=== PATIENT | male | born 1965 | race Caucasian/White ===

== ENCOUNTER 2023-02-22 08:34 | Outpatient (OUT) | payer MEDICARE, MEDICAID, SELFPAY ==
--- NOTE | 2023-02-22 08:41 | US_ITS ---
The [address] [address] Patient Name: BLANCA VICKERS MRN: [facility]:[id number] date: 1965 Sex: M Assigned Patient Location: US Current Patient Location: US Accession/Order Number: [id number] Exam Date: 02/22/2023 08:42 Report Date: 02/22/2023 09:44 At the request of: NON-STAFF PHYSICIAN Procedure: US scrotum US scrotum, 02/22/2023 8:42 AM EDT, [place]001 INDICATION: Testicular Lump N50.89 COMPARISON: None TECHNIQUE: Multiple transverse and sagittal grayscale, color, and spectral Doppler sonographic images of the scrotum were obtained. FINDINGS: Right scrotum: Testis measurements: 4.5 x 2.5 x 3.6 cm. Epididymis: 8 mm Testis appearance: Normal echogenicity. No intratesticular masses. Color and spectral Doppler tracings: Normal. Other: There is a 1.3 x 1.0 x 1.3 cm anechoic focus along the superior aspect of the testicle which may represent a spermatocele. Left scrotum: Testis measurements: 5.0 x 2.4 x 3.0 cm. Epididymis: There are numerous anechoic foci, measuring up to 9 mm in diameter. Testis appearance: Normal echogenicity. No intratesticular masses. Color and spectral Doppler tracings: Normal. Other: No hydrocele or varicocele. US/US scrotum IMPRESSION: No evidence of mass or torsion. Apparent bilateral spermatoceles. Electronically authenticated by: HOMER JJ Date: 02/22/2023 09:44
[2023-02-22 10:56] LABS: Prostate Specific Antigen Scrn 2.14 ng/mL (<=4.00)
== END 2023-02-22 08:35 | disposition home or self-care (01) ==
LOC: US 08:34
PROVIDERS: PCP Family Medicine
DX: N40.1 Benign prostatic hyperplasia with lower urinary tract symptoms (principal); N50.89 Other specified disorders of the male genital organs; Z12.5 Encounter for screening for malignant neoplasm of prostate
CPT/HCPCS: 36415; 76870; G0103

== ENCOUNTER 2023-03-01 15:45 | Outpatient (OUT) | payer MEDICARE, MEDICAID, SELFPAY ==
[2023-03-01 16:20] LABS: Basophils Percent Auto 0.4 % (0.2-2.0); Eosinophils Absolute Auto 0.2 10^3/uL (0.0-0.7); Eosinophils Percent Auto 2.5 % (0.9-7.0); Hematocrit 47.2 % (42.0-54.0); Immature Granulocytes Abs Auto 0.04 10^3/uL (0.00-0.03); Immature Granulocytes Pct Auto 0.4 % (0.0-0.5); Lymphocytes Absolute Auto 2.8 10^3/uL (1.2-3.8); Lymphocytes Percent Auto 30.2 % (20.5-60.0); Mean Corpuscular HGB Conc 33.9 g/dL (29.9-35.2); Mean Corpuscular Hemoglobin 32.7 pg (25.9-34.0); Mean Corpuscular Volume 96.3 fL (80.0-94.0); Mean Platelet Volume 9.5 fL (9.5-13.5); Monocytes Absolute Auto 0.8 10^3/uL (0.3-0.8); Monocytes Percent Auto 8.4 % (1.7-12.0); Neutrophils Absolute Auto 5.3 10^3/uL (1.4-6.5); Neutrophils Percent Auto 58.1 % (43.0-75.0); Platelet Count 285 10^3/uL (150-450); Red Cell Distribution Width 12.1 % (11.0-15.0); White Blood Count 9.1 10^3/uL (4.0-11.0)
[2023-03-01 16:44] LABS: Estimated Average Glucose 105 mg/dL; Glycohemoglobin A1C 5.3 % (4.5-6.2)
[2023-03-01 16:58] LABS: Prostate Specific Antigen Scrn 2.44 ng/mL (<=4.00)
[2023-03-01 17:02] LABS: Alanine Aminotransferase 27 U/L (16-63); Albumin Globulin Ratio 1.1; Albumin Level 3.7 g/dL (3.4-5.0); Alkaline Phosphatase 106 U/L (46-116); Anion Gap 11.1; Aspartate Amino Transferase 25 U/L (15-37); BUN Creatinine Ratio 14.1; Bilirubin Total 0.5 mg/dL (0.2-1.0); Calcium 8.2 mg/dL (8.5-10.1); Carbon Dioxide 24.9 mmol/L (21.0-32.0); Chloride 104 mmol/L (98-107); Chol HDL Ratio 5.2; Cholesterol 176 mg/dL (<=200); Estimated GFR (African America >60 (>=60); Estimated GFR (Non-African Ame >60 (>=60); Free T3 2.83 pg/mL (2.18-3.98); Globulin 3.4 g/dL; Glucose 84 mg/dL (74-106); HDL Cholesterol 34 mg/dL (40-60); Sodium 136 mmol/L (136-145); Thyroid Stimulating Hormone 1.886 uIU/mL (0.358-3.740); Total Protein 7.1 g/dL (6.4-8.2); Triglycerides 181 mg/dL (<=150); VLDL CHOLESTEROL 36.2 mg/dL
== END 2023-03-01 15:46 | disposition home or self-care (01) ==
LOC: LAB 15:47
PROVIDERS: PCP Family Medicine; Visit Provider Family Medicine
DX: Z00.00 Encounter for general adult medical examination without abnormal findings (principal); E78.5 Hyperlipidemia, unspecified; R73.09 Other abnormal glucose; Z12.5 Encounter for screening for malignant neoplasm of prostate; R13.10 Dysphagia, unspecified
CPT/HCPCS: 36415; 80053; 80061; 83036; 83525; 84436; 84443; 84481; 85025; 86677; G0103

== ENCOUNTER 2023-03-21 09:41 | Outpatient (OUT) | payer MEDICARE, MEDICAID, SELFPAY ==
--- NOTE | 2023-03-21 09:48 | FL_ITS ---
The [address] [address] Patient Name: BLANCA VICKERS MRN: [id number] date: 1965 Sex: M Assigned Patient Location: NM Current Patient Location: NM Accession/Order Number: [id number] Exam Date: 03/21/2023 09:52 Report Date: 03/21/2023 10:36 At the request of: MARINA SCOTT Procedure: FL modified barium swallow EXAMINATION: NM modified barium swallow HISTORY: Dysphagia R13.10 COMPARISON: No relevant comparison available. TECHNIQUE: A swallowing evaluation was performed with fluoroscopy in the usual manner. Standard level fluoroscopic mode of operation utilized. FINDINGS: ORAL PHASE: Normal deglutition. PHARYNGEAL PHASE: Normal swallowing. ASPIRATION: None. STRUCTURE: Normal. No visible obstruction, stricture, or dilatation. OTHER: Negative. FL/NM modified barium swallow IMPRESSION: 1. Normal examination. Electronically authenticated by: ADA LOPEZ Date: 03/21/2023 10:36
== END 2023-03-21 09:42 | disposition home or self-care (01) ==
LOC: FL 09:42
PROVIDERS: PCP Family Medicine; Visit Provider Family Medicine
DX: R13.10 Dysphagia, unspecified (principal)
CPT/HCPCS: 74230; 92611

== ENCOUNTER 2023-04-02 13:25 | Outpatient (OUT) | payer MEDICARE, MEDICAID, SELFPAY | END 2023-04-02 13:26 | disposition home or self-care (01) | LOC: PST 13:26 | PROVIDERS: PCP Family Medicine; Visit Provider Surgery | DX: Z01.818 Encounter for other preprocedural examination (principal); R13.14 Dysphagia, pharyngoesophageal phase; Z12.11 Encounter for screening for malignant neoplasm of colon ==

== ENCOUNTER 2023-04-10 08:00 | Day surgery (SDC) | payer MEDICARE, MEDICAID, SELFPAY ==
--- NOTE | 2023-04-10 | OP_ITS ---
OPERATION DATE: ??04/10/2023 PREOPERATIVE DIAGNOSIS:? Dysphagia as well as need for colorectal screening. POSTOPERATIVE DIAGNOSIS:? Normal EGD and ascending colon polyp, 3 mm. PROCEDURE:? EGD and colonoscopy to cecum with cold snare polypectomy x1 for ascending colon polyp. SURGEON:? Pacheco Foy M.D. ANESTHESIA:? Monitored anesthesia care. ESTIMATED BLOOD LOSS:? Less than 1 mL. INDICATIONS AND CONSENT:? Patient is a 57-year-old male presents for dysphagia as well as colorectal screening.? Indications, risks, benefits, alternatives of proceeding with EGD and colonoscopy were explained extensively to the patient, including the risks of bleeding, aspiration, esophageal/gastric/duodenal or colonic perforation or anesthetic complications.? All of his questions were answered.? Informed consent was obtained. PROCEDURE:? Patient brought to the operating room, placed in the left lateral decubitus position.? Monitored anesthesia care was provided.? Bite block was placed in the patient?s mouth.? Scope was inserted into the oropharynx.? Under direct visualization, it was advanced into the esophagus, past the cricopharyngeus, down to the stomach.? The stomach was insufflated with air.? The pylorus was traversed down to the descending portion of the duodenum.? There was no evidence of duodenitis or ulceration.? There was no scarring within the pyloric channel.?? Scope was pulled back into the stomach and retroflexed.? There was no significant hiatal hernia.? The GE junction was noted at approximately 39 cm.? There was no distal esophagitis or Thompson?s changes. The remainder of the esophagus was unremarkable.? The scope was then withdrawn.? Patient was then positioned for colonoscopy.? Rectal exam was performed, which showed no masses or blood.? The scope was then inserted into the anal canal.? Under direct visualization, it was advanced.? It was advanced to the cecum where cecal markings were clearly identified.? Upon withdrawal of the scope, mucosal surfaces were carefully examined.? Within the ascending colon, there was noted to be a 3 mm sessile polyp that was removed with cold snare with good hemostasis.? There were no other mass lesions or polyps.? No inflammatory changes or ulcerations.? No significant diverticulosis.? The scope was retroflexed in the anal canal.? There was no significant hemorrhoidal disease.? The scope was then withdrawn.? The patient tolerated procedure well, was sent to recovery room in good condition. Follow up colonoscopy should be in five years, but may change depending on the pathology results. CC:? Anuel Hurd M.D. SHAMEKA
[2023-04-10 08:17] VITALS: BP 147/90; PULSE 81; RESP 16; TEMP 36.2; O2SAT 94; BMI 28.3
[2023-04-10] MEDS: LACTATED RINGER'S SOLUTION 1,000 ML 50 ML IV ×2 (08:21→09:31)
[2023-04-10 10:54] VITALS: BP 101/72; PULSE 72; RESP 16; O2SAT 97
[2023-04-10 11:09] VITALS: BP 121/72; PULSE 65; RESP 16; O2SAT 97
[2023-04-10 11:24] VITALS: BP 129/91; PULSE 66; RESP 16; O2SAT 97
== END 2023-04-10 11:24 | disposition home or self-care (01) ==
PROVIDERS: PCP Family Medicine; Visit Provider Surgery
PROC: (CPT 43235; principal; 2023-04-10 09:20)
DX: Z12.11 Encounter for screening for malignant neoplasm of colon (principal); N40.1 Benign prostatic hyperplasia with lower urinary tract symptoms; H91.91 Unspecified hearing loss, right ear; K63.5 Polyp of colon; R13.14 Dysphagia, pharyngoesophageal phase; F17.210 Nicotine dependence, cigarettes, uncomplicated; Z90.49 Acquired absence of other specified parts of digestive tract; E66.9 Obesity, unspecified; I10 Essential (primary) hypertension; Z68.29 Body mass index [BMI] 29.0-29.9, adult
CPT/HCPCS: 43235; 45385; J2704

== ENCOUNTER 2025-04-30 09:59 | Outpatient (RCR) | payer MEDICARE, MEDICAID, SELFPAY | END 2025-05-14 12:52 | disposition home or self-care (01) | LOC: PT 09:59 | PROVIDERS: PCP Family Medicine; Visit Provider Physician Assistant | DX: M17.11 Unilateral primary osteoarthritis, right knee (principal); S86.911D Strain of unspecified muscle(s) and tendon(s) at lower leg level, right leg, subsequent encounter; M54.30 Sciatica, unspecified side | CPT/HCPCS: 97110; 97112; 97162 ==

== ENCOUNTER 2025-05-29 09:33 | Emergency (ER) | payer MEDICARE, SELFPAY ==
[2025-05-29 09:39] VITALS: BP 156/10; PULSE 116; TEMP 36.7; O2SAT 98; BMI 26.2
--- NOTE | 2025-05-29 09:49 | ED.GENADUL1 ---
HPI HPI - General Adult General Chief complaint: Upper Respiratory Infection Stated complaint: ISSUE W/ NOSE Time Seen by Provider: 05/29/25 09:38 Source: patient Mode of arrival: walk-in History of Present Illness HPI narrative: CC - NASAL CONGESTION Patient states that he has a long history of nasal swelling and was told that he has polyps in his nose by and ENT in [place]. He said over the last few weeks it has gotten worse and over the last couple days he is having difficulty sleeping because he is so anxious about the worsening symptoms. He has tried Flonase without improvement. He has also tried a variety of zbep-lho-qxjmujx remedies including Mucinex, nasal spray, [place] pot. No fever or chills. No cough or cold symptoms. No ear pain or sore throat. He has not called the ENT to discuss his symptoms. Related Data Home Medications ?Medication ?Instructions ?Recorded ?Confirmed tamsulosin 0.4 mg capsule (Flomax) 0.4 mg PO DAILY 04/02/23 05/29/25 diclofenac sodium 75 mg mg PO 05/29/25 tablet,delayed release Previous Rx's ?Medication ?Instructions ?Recorded hydroxyzine HCl 25 mg tablet 25 mg PO BID PRN anxiety #14 tabs 05/29/25 methylprednisolone 4 mg tablets in 4 mg PO DAILY #21 ea 05/29/25 a dose pack (Medrol (Bin)) Allergies Allergy/AdvReac Type Severity Reaction Status Date / Time codeine Allergy Intermediate Hives Verified 05/29/25 09:38 [facility] Medical History (Updated 05/29/25 @ 09:52 by Krystian Otero) Ankle fracture ?S82.899A - Other fracture of unspecified lower leg, initial encounter for closed fracture (ICD-10) Ankle fracture, right ?S82.891A - Other fracture of right lower leg, initial encounter for closed fracture (ICD-10) Back disorder ?M53.9 - Dorsopathy, unspecified (ICD-10) Sciatic nerve disease ?G57.00 - Lesion of sciatic nerve, unspecified lower limb (ICD-10) Testicle lump ?N50.89 - Other specified disorders of the male genital organs (ICD-10) Smoker ?F17.200 - Nicotine dependence, unspecified, uncomplicated (ICD-10) Scrotal mass ?N50.89 - Other specified disorders of the male genital organs (ICD-10) Prostate cancer screening ?Z12.5 - Encounter for screening for malignant neoplasm of prostate (ICD-10) Obesity ?E66.9 - Obesity, unspecified (ICD-10) Hypertension ?I10 - Essential (primary) hypertension (ICD-10) Colon polyp ?K63.5 - Polyp of colon (ICD-10) Dysphagia ?R13.10 - Dysphagia, unspecified (ICD-10) Diverticulitis ?K57.92 - Diverticulitis of intestine, part unspecified, without perforation or abscess without bleeding (ICD-10) BPH (benign prostatic hyperplasia) ?N40.0 - Benign prostatic hyperplasia without lower urinary tract symptoms (ICD-10) Deafness ?H91.90 - Unspecified hearing loss, unspecified ear (ICD-10) Surgical History (Updated 04/02/23 @ 12:53 by Iza Arce RN) Hx of tonsillectomy ?Z90.89 - Acquired absence of other organs (ICD-10) H/O partial resection of colon ?Z90.49 - Acquired absence of other specified parts of digestive tract (ICD-10) H/O colonoscopy ?Z98.890 - Other specified postprocedural states (ICD-10) History of appendectomy ?Z90.49 - Acquired absence of other specified parts of digestive tract (ICD-10) H/O cystoscopy ?Z98.890 - Other specified postprocedural states (ICD-10) Family History (Updated 04/02/23 @ 12:54 by Iza Arce RN) Other Cancer of kidney Social History (Updated 04/10/23 @ 08:16 by Tano Arnett) Within the past year, how often did you have a drink containing alcohol: 2-4 times a month Within the past year, how often did you have six or more drinks on one occasion: never Smoking status: Current every day smoker Second hand tobacco smoke exposure: No Non-prescribed substance use: cannabis (any form) Previous occupational history: Unemployed Known occupational exposures/hazards: No Highest level of school completed/degree received: 6th grade Little interest or pleasure in doing things: not at all Feeling down, depressed, or hopeless: several days Exam Narrative Exam Narrative: Nurses notes and vital signs reviewed and patient is not hypoxic. afebrile General: Well-appearing and in no apparent distress. Skin: Warm, dry, no pallor noted. No rash. Head: Normocephalic, atraumatic. Neck: Supple, non-tender. No cervical lymphadenopathy. Eye: Pupils are equal, round and EOMI. No scleral icterus. Ears, Nose, Mouth, and Throat: TM are clear, no posterior oropharynx erythema, uvula is mid-line. Moderate nasal mucosal hypertrophy. Oral mucosa is moist Cardiovascular: Regular Rate and Rhythm without murmur, gallop or rub. Respiratory: No accessory muscle use or respiratory distress. Lungs are clear to auscultation, no wheezing, rales or rhonchi Neurological: A&O x4. No cranial nerve dysfunction observed. No truncal ataxia. Moves all extremities. Sensation intact. Psychiatric: Cooperative and interactive. Normal mood and affect. Constitutional Vital Signs, click to edit/add: Last Vital Signs Temp 98.1 F 05/29/25 09:39 Pulse 116 H 05/29/25 09:39 Resp 20 05/29/25 09:39 BP 156/10 H 05/29/25 09:39 Pulse Ox 98 05/29/25 09:39 O2 Del Method Room Air 05/29/25 09:39 Course Vital Signs Vital signs: Vital Signs Temperature 98.1 F 05/29/25 09:39 Pulse Rate 116 H 05/29/25 09:39 Respiratory Rate 20 05/29/25 09:39 Blood Pressure 156/10 H 05/29/25 09:39 Pulse Oximetry 98 05/29/25 09:39 Oxygen Delivery Method Room Air 05/29/25 09:39 Temperature 98.1 F 05/29/25 09:39 Pulse Rate 116 H 05/29/25 09:39 Respiratory Rate 20 05/29/25 09:39 Blood Pressure 156/10 H 05/29/25 09:39 Pulse Oximetry 98 05/29/25 09:39 Oxygen Delivery Method Room Air 05/29/25 09:39 Medical Decision Making MDM Narrative Medical decision making narrative: Patient has moderate amount of nasal swelling but I am able to see if airways back into the nasal passage on both sides. He was very anxious and therefore I ordered him to receive some hydroxyzine. He was also given prednisone in the ED before being discharged home. I gave him reassurance. He will need to call his ear nose and throat physician to schedule follow-up. He will be placed on a short course of steroid to see if that is beneficial. Discharge Plan Discharge Chief Complaint: Upper Respiratory Infection Clinical Impression: Sinusitis Patient Disposition: Home, Self-Care Time of Disposition Decision: 09:52 Prescriptions / Home Meds: New hydroxyzine HCl 25 mg tablet 25 mg PO BID PRN (Reason: anxiety) Qty: 14 0RF methylprednisolone [Medrol (Bin)] 4 mg tablets,dose pack 4 mg PO DAILY Qty: 21 0RF No Action diclofenac sodium 75 mg tablet,delayed release (DR/EC) PO tamsulosin [Flomax] 0.4 mg capsule 0.4 mg PO DAILY Print Language: Gibraltarian Instructions: Rhinosinusitis (ED) Referrals: Anuel Hurd MD [Primary Care Provider, Family Practice] - 1 week Debbie Hanson MD [Physician, Ear, Nose, Throat] - As soon as possible
[2025-05-29] MEDS: HYDROXYZINE PAMOATE 25 MG CAPSULE PO (10:09)
[2025-05-29] MEDS: PREDNISONE 20 MG TABLET 40 MG PO (10:09)
--- OUTSIDE RECORDS SUMMARY | 2025-05-29 10:12 | XMS_ITS | Clinical Summary ---
Author Organization [facility] Healthcare Address [address] [place] [address] Care Team Providers Care Nuclear Plant Instrument Technician Name Role Phone Unavailable Primary Care Provider Unavailabl e Social History Tobacco UseTypesPacks/DayYears UsedDateSmoking Tobacco: Never AssessedSex and Gender InformationValueDate RecordedSex Assigned at BirthNot on fileLegal Sex Male09/12/2022 7:01 PM EDTGender IdentityNot on fileSexual OrientationNot on file Last Filed Vital Signs Vital SignReadingTime TakenCommentsBlood Gqeyawge199/8207/09/2022 12:00 PM EST Pulse--Temperature--Respiratory Rate--Oxygen Saturation--Inhaled Oxygen Concentration--Pwlfqz169 kg (231 lb)07/09/2022 12:00 PM ITNRvzlld715.9 cm (6') 07/09/2022 12:00 PM ESTBody Mass Index31.33007/09/2022 12:00 PM EST Plan of Treatment Not on file Insurance
--- OUTSIDE RECORDS SUMMARY | 2025-05-29 10:12 | XMS_ITS | Clinical Summary ---
Author Organization [facility] Address [address], [address] [place] [address] Care Team Providers Care Salon Leader Name Role Phone Anuel Hurd MD Primary Care Provider [phone] Allergies Active AllergyReactionsCriticalityNoted KpoxNbzaoxspQwpdbpw01/09/2019 itch Medications MedicationSigDispense QuantityRefillsLast FilledStart DateEnd DateStatus gabapentin (NEURONTIN) 600 MG tablet Take 600 mg by mouth 3 times daily.Active Meloxicam 10 MG CAPS Take by mouthActive Family History Medical HistoryRelationNameCommentsArthritisFatherDiabetesFatherHigh Blood PressureFatherStrokeFatherRelationNameStatusCommentsFather Social History Tobacco UseTypesPacks/DayYears UsedDateSmoking Tobacco: Some DaysSmokeless Tobacco: NeverSex and Gender InformationValueDate RecordedSex Assigned at Not on fileLegal KmmQjko9108/10/2012 7:29 PM ESTGender IdentityNot on fileSexual OrientationNot on file Last Filed Vital Signs Vital SignReadingTime TakenCommentsBlood Pressure--Pulse--Otmuytvjxef10.4 ??C (97.6 ??F)04/03/2019 10:30 AM EDTRespiratory Rate--Oxygen Saturation--Inhaled Oxygen Concentration--Azqoma576.5 kg (237 lb)04/03/2019 10:30 AM TZCFfatpj347.5 cm (6' 3 )04/03/2019 10:30 AM EDTBody Mass Index29.6204/03/2019 10:30 AM EDT Plan of Treatment Not on file Insurance Care Teams Team MemberRelationshipSpecialtyStart DateEnd Anuel Hurd MD [address] [place] [address] PCP - GeneralFamily Medicine02/06/19
--- OUTSIDE RECORDS SUMMARY | 2025-05-29 10:12 | XMS_ITS | Patient Health Record ---
Author Organization [facility] [place] Address [address] [place] [address] Care Team Providers Care Freelance Displayer Name Role Phone Vannessa Garfield Primary Care Provider Allergies Allergen (clinical drug ingredient) Drug/Non Drug Allergy documented on EMR Reaction Allergy Type Onset Date Status Information temporarily unavailable Codeine itching Drug Allergy Active Results Component Value Reference Range Notes UA (Urinalysis, Dipstix only - w/o micro) Reviewed date:01/29/2025 09:24:01 AM Interpretation: Performing Lab: Notes/Report: COLOR yellow Yellow - Kia - CLARITYclearClear - ClearGLUCOSE-0 - 133 MG/DLALBUMIN-NEG - NEG MG/DLBILIRUBIN- NEG - NEG MG/DLSPECIFIC GRAVITY1.0101.001 - 1.035KETONES+NEG - NEG MG/DLBLOOD, UR-PH, UR5.05 - 9UROBILNOGEN-0.2 - 1 MG/DLNITRITE-NEG - NEGESTERASE (MALOU)+NEG - NEG MG/DLUA DIP NONAUTO WO MICRO (23922) - IN OFFICE (Not yet reviewed by provider) Interpretation: Performing Lab: Notes/Report: COLORlight yellowCLARITYclearGLUCOSEnBILIRUBINnKETONEnSPECIFIC GRAVITY1.005BLOOD fkwweSG0SPGKVUSeZWNVQMXOXJRRaUMRVNIFgWYQDDFCSS ESTERASEtrace Reason For Referral Diagnosis 1 Shoulder impingement (M75.40) Referral Organization [facility] Referring Provider First Name Garfield Referring Provider Last Name Vannessa Referring Provider Speciality Family Med icine Referred Provider Oswaldo Farrell Referred Provider Specialty Orthopedic S urgery Referral Priority Routine Medications Medication SIG (Take, Route, Frequency, Duration) Notes Start Date End Date Status Amoxicillin-Pot Clavulanate 875-125 MG 1 tablet Orally every 12 hrs; Duration: 10 days 5ActiveCefdinir 300 MG2 capsule Orally once a day; Duration: 10 days 5ActiveTamsulosin HCl 0.4 MGTAKE 1 CAPSULE BY MOUTH EVERY DAY; Duration: 90ActivePyridium 200 MG1 tablet after meals Orally Three times a day; Duration: 2 days5ActiveFluticasone Propionate 50 MCG/ACT2 sprays (1 spray in each nostril) Nasal Once a day; Duration: 90 daysActiveDiclofenac Sodium 75 MG1 tablet as needed Orally Twice a day; Duration: 30 days03/26/2024 Active Social History Alcohol Screen (Audit-C) Question Answer Notes Did you have a drink containing alcohol in the p ast year? No Hlweat4UyrpyxdpazvezhUpydzblsSLZXP-A (Standard) Question Answer Notes Did you have a drink containing alcohol in the p ast year? No Zvnpzr1HupbkuwctrtxenUcfgabgn Problems Problem Type SNOMED Code ICD Code Onset Dates Problem Status W/U Status Risk Notes Problem Information temporarily unavaila ble Unilateral primary osteoarthritis, right knee (M17.11) ActiveconfirmedProblemInformation temporarily unavailableWell adult (Z00.00) ActiveconfirmedProblemInformation temporarily unavailableDysphagia (R13.10) ActiveconfirmedProblemInformation temporarily unavailableShoulder impingement (M75.40)ActiveconfirmedProblemInformation temporarily unavailableLeft flank pain (R10.9)ActiveconfirmedProblemInformation temporarily unavailableOlecranon bursitis (M70.20)ActiveconfirmedProblemInformation temporarily unavailable Diverticulitis large intestine w/o perforation or abscess w/bleeding (K57.33) Activeconfirmed Vital Signs Blood pressure diastolic 74 mm Hg 01/14/2025 Hyshwy97 in01/14/2025lood pressure epwpamtb263 mm Hg01/14/20257687Zujvwk071.2 lbs 01/14/2025BMI29.17 kg/m201/14/2025 Encounters Encounter Location Date Provider Diagnosis [facility] [address] [place] [address] 09/23/2024 Garfield Hoy Shoulder impingement M75.40 [facility] [address] [facility] [place] [place] [address] 01/14/2025 Garfield Hoy Left flank pain R10. 9 [facility] [address] [facility] [place] [address] 01/29/2025 Garfield Hoy UTI symptoms R39.9 [facility] [address] [facility] [place] [address] 09/23/2024 Garfield Hoy Shoulder impingement M75.40 [facility] [address] [place] [address] 10/08/2024 Garfield Hoy [facility] [facility] [place] [address] [facility] [place] [address]/07/2024Doug HoyLeft flank pain R10.9[facility] [address] [place] [address]/03/2025Doug Hoy Assessments Encounter Date Diagnosis (ICD Code) Assessment Notes Treatment Notes Treatment Clinical Notes Section Notes 09/23/2024 Shoulder impingement (ICD-10 - M 75.40) 01/14/2025Left flank pain (ICD-10 - R10.9)01/29/2025UTI symptoms (ICD-10 - R39.9)09/23/2024Shoulder impingement (ICD-10 - M75.40)01/29/2025Left flank pain (ICD-10 - R10.9) Plan Of Treatment Pending Test Test Name Order Date CMP (COMPLETE METABOLIC PANEL) 3 HEMOGLOBIN A1C (GLYCO) 03/01/2023 INSULIN, TOTAL 03/01/2023 LIPID PANEL (CHOL/TRIG/HDL/LDL) 03/01/20 23 CBC WITH DIFF (EXP 05/2025) 03/01/2023 PSA, PROSTATE-SPECIFIC ANTIGEN 3 MRI Shoulder RT w/o contrast 09/23/2024 UA DIP NONAUTO WO MICRO (46601) - IN OFF ICE 01/14/2025 Barium Swallow - Modified 03/01/2023 H PYLORI ANTIBODY IGG 03/01/2023 THYROID PANEL (T4/TSH/FREE T3) 3 Insurance Providers Payer Name Payer Address Payer Phone Subscriber Number Group Number Insured Name Patient Relationship to Insured Coverage Start Date Coverage End Date [place]IC[place] [address] [place] [address] [id number] Black, FreddySelf - patient is the [id number] 2022 Medical (General) History Medical History History ICD Code rectal bleeding colon polypsSurgical History Surgery Date(Month/Year) appendectomy xettlhiujtt42/98LKX62/23
--- OUTSIDE RECORDS SUMMARY | 2025-05-29 10:12 | XMS_ITS | Clinical Summary ---
Author Organization [facility] Address [id number] [place] [address] Care Team Providers Care Dental Secretary Name Role Phone Unavailable Primary Care Provider Unavailabl e Social History Tobacco UseTypesPacks/DayYears UsedDateSmoking Tobacco: Never AssessedChildcare AnswerDate XugejsuwGmhasqbiwZbzxqax53/12/2019EmploymentAnswerDate Recorded RbdelnbehkChjlhgg15/12/2019Purpose - LifeAnswerDate RecordedPurpose and direction in btoaExgwrwy49/11/2021Sex and Gender InformationValueDate Recorded Sex Assigned at BirthNot on fileLegal NleJgnv8202/03/2015 11:25 AM EDTGender IdentityNot on fileSexual OrientationNot on file Plan of Treatment Not on file Medical Devices Not on file Insurance
== END 2025-05-29 10:26 | disposition home or self-care (01) ==
LOC: ER 10:09
PROVIDERS: Emergency Provider Emergency Medicine; PCP Family Medicine
DX: J32.9 Chronic sinusitis, unspecified (principal)
CPT/HCPCS: 99283; J7512; Q0177